=== PATIENT | female | born 1965 | race Caucasian/White ===

== ENCOUNTER → 2018-03-18 | Outpatient (CLI) | payer SELFPAY | LOC: M RAD 12:02 | DX: S92.424A Nondisplaced fracture of distal phalanx of right great toe, initial encounter for closed fracture (principal); X58.XXXA Exposure to other specified factors, initial encounter; Y92.89 Other specified places as the place of occurrence of the external cause | CPT/HCPCS: 73660 ==

== ENCOUNTER → 2019-10-11 | Outpatient (REF) | payer BC | LOC: M WUC 09:26 | PROVIDERS: ATTEND Physician Assistant | DX: J02.9 Acute pharyngitis, unspecified (principal) ==

== ENCOUNTER → 2019-12-26 | Outpatient (CLI) | payer BC | LOC: M LABSMTC 13:53 | PROVIDERS: ATTEND Family Medicine | DX: Z11.59 Encounter for screening for other viral diseases (principal); Z20.828 Contact with and (suspected) exposure to other viral communicable diseases ==

== ENCOUNTER 2020-10-06 14:26 | Emergency (ER) | payer BC ==
[~2020-10-06] VITALS: Ht 167.6 cm; Wt 77.3 kg
[2020-10-06] MEDS ORDERED: ACET1TAB37 PO (14:37)
[2020-10-06] MEDS ORDERED: IBUP200C33 PO (14:37)
--- NOTE | 2020-10-06 15:07 | REP ---
INDICATION: injury skiiing COMPARISON: None. TECHNIQUE: AP, lateral, bilateral oblique and sunrise views. FINDINGS: The osseous structures and joint spaces are intact and normal for age. There is no evidence for acute fracture or dislocation. No obvious joint effusion is appreciated. Surrounding soft tissues are unremarkable. No subcutaneous emphysema or radiodense foreign body. IMPRESSION: No acute fracture or dislocation. <Electronically signed by Bashir Gonzalez > 10/06/20 1215
[2020-10-06] MEDS ORDERED: ACET1TAB16 PO (15:26)
[2020-10-06 15:35] VITALS: BP 128/89
== END 2020-10-06 15:45 | disposition home or self-care (01) ==
LOC: M ED 14:26
DX: S86.312A Strain of muscle(s) and tendon(s) of peroneal muscle group at lower leg level, left leg, initial encounter (principal); X50.1XXA Overexertion from prolonged static or awkward postures, initial encounter; Y92.838 Other recreation area as the place of occurrence of the external cause; Y93.23 Activity, snow (alpine) (downhill) skiing, snowboarding, sledding, tobogganing and snow tubing; Y99.8 Other external cause status; F17.210 Nicotine dependence, cigarettes, uncomplicated; Z79.899 Other long term (current) drug therapy

== ENCOUNTER → 2024-03-03 | Outpatient (CLI) | payer BC ==
[~2024-03-03] MED LIST: ACET1TAB37 PO; ACET300T48 PO; IBUP200C33 PO
[2024-03-03 14:33] LABS: THYROID STIMULATING HORMONE 2.043 uIU/ML (0.55-4.78)
[2024-03-03 14:38] LABS: ALBUMIN 3.3 G/DL (3.2-5.2); ALKALINE PHOSPHATASE 86 U/L (46-116); ALT/SGPT 24 U/L (7.0-40); AST/SGOT 12 U/L (<34); BILIRUBIN,TOTAL 0.4 MG/DL (0.3-1.2); BLOOD UREA NITROGEN 16 MG/DL (9-23); CALCIUM LEVEL 8.9 MG/DL (8.5-10.1); CARBON DIOXIDE LEVEL 30 MMOL/L (20-31); CHLORIDE LEVEL 107 MMOL/L (98-107); CHOLESTEROL LEVEL 235 MG/DL (<200); CHOLESTEROL RISK RATIO 4.46 (<5); CREATININE FOR GFR 0.66 MG/DL (0.55-1.30); GLOMERULAR FILTRATION RATE > 60.0 (>51); GLUCOSE, FASTING 90 MG/DL (60-100); HDL CHOLESTEROL 52.6 MG/DL (>40); HEMATOCRIT 48.6 % (36.0-47.0); HEMOGLOBIN 16.4 g/dl (12.0-15.5); LDL CHOLESTEROL 129.2 MG/DL (<100); MEAN CORPUSCULAR HEMOGLOBIN 32.5 pg (27.0-33.0); MEAN CORPUSCULAR HGB CONC 33.7 g/dl (32.0-36.5); MEAN CORPUSCULAR VOLUME 96.2 fl (80.0-96.0); NON-HDL-C 182.4 MG/DL; PLATELET COUNT, AUTOMATED 272 10^3/uL (150-450); POTASSIUM SERUM 4.8 MMOL/L (3.5-5.1); RED BLOOD COUNT 5.05 10^6/uL (4.00-5.40); SODIUM LEVEL 141 MMOL/L (136-145); TOTAL PROTEIN 6.2 G/DL (5.7-8.2); TRIGLYCERIDES LEVEL 266 MG/DL (<150); WHITE BLOOD COUNT 7.1 10^3/uL (4.0-10.0)
[2024-03-03 14:54] LABS: CREATININE, URINE 138.6 MG/DL
[2024-03-03 15:00] LABS: HEMOGLOBIN A1c 5.1 % (4.0-6.0)
[2024-03-03 15:10] LABS: MAU/CREAT RATIO 924.9 MCG/MG (0.0-30.0)
== END ==
LOC: M PLALAB 11:50
PROVIDERS: ATTEND Family Medicine
DX: I10 Essential (primary) hypertension (principal); Z13.6 Encounter for screening for cardiovascular disorders; F17.210 Nicotine dependence, cigarettes, uncomplicated

== ENCOUNTER → 2024-05-08 | Outpatient (CLI) | payer BC | LOC: M RAD 16:30 | PROVIDERS: ATTEND Family Medicine | DX: Z12.2 Encounter for screening for malignant neoplasm of respiratory organs (principal); F17.210 Nicotine dependence, cigarettes, uncomplicated; J98.11 Atelectasis; R91.8 Other nonspecific abnormal finding of lung field; J84.10 Pulmonary fibrosis, unspecified; I70.0 Atherosclerosis of aorta ==

== ENCOUNTER → 2024-06-28 | Outpatient (CLI) | payer BC | LOC: M CARPUL 11:02 | PROVIDERS: ATTEND Family Medicine | DX: R06.09 Other forms of dyspnea (principal) ==

== ENCOUNTER → 2024-07-10 | Outpatient (CLI) | payer BC ==
[2024-07-10 18:15] LABS: APPEARANCE, URINE CLOUDY (CLEAR); BACTERIA, URINE AUTO NEGATIVE (NEGATIVE); BILIRUBIN, URINE AUTO 1+ (NEGATIVE); BLOOD, URINE BLOOD NEGATIVE (NEGATIVE); COLOR, URINE AMBER (YELLOW); GLUCOSE, URINE (UA) AUTO NEGATIVE (NEGATIVE); KETONE, URINE AUTO TRACE mg/dL (NEGATIVE); LEUKOCYTE ESTERASE, URINE AUTO 2+ (NEGATIVE); MUCUS, URINE MODERATE (NEGATIVE); NITRITE, URINE AUTO NEGATIVE (NEGATIVE); PROTEIN, URINE AUTO 3+ mg/dL (NEGATIVE); RBC, URINE AUTO 3 /HPF (0-3); SPECIFIC GRAVITY URINE AUTO 1.029 (1.002-1.035); SQUAMOUS EPITHELIAL CELL UR AU 5 /HPF (0-6); WBC, URINE AUTO 44 /HPF (0-3)
[2024-07-10 18:45] LABS: ALBUMIN 3.9 G/DL (3.2-5.2); ALKALINE PHOSPHATASE 99 U/L (46-116); ALT/SGPT 18 U/L (7.0-40); AST/SGOT 13 U/L (<34); BILIRUBIN,TOTAL 0.4 MG/DL (0.3-1.2); BLOOD UREA NITROGEN 21 MG/DL (9-23); CALCIUM LEVEL 10.4 MG/DL (8.5-10.1); CARBON DIOXIDE LEVEL 30 MMOL/L (20-31); CHLORIDE LEVEL 106 MMOL/L (98-107); CREATININE FOR GFR 0.78 MG/DL (0.55-1.30); GLOMERULAR FILTRATION RATE > 60.0 (>51); GLUCOSE, FASTING 82 MG/DL (60-100); POTASSIUM SERUM 4.1 MMOL/L (3.5-5.1); SODIUM LEVEL 138 MMOL/L (136-145); TOTAL PROTEIN 7.3 G/DL (5.7-8.2)
[2024-07-10 19:00] LABS: CREATININE, URINE 361.1 MG/DL; TOTAL PROTEIN,RANDOM URINE 162.4 MG/DL (0.0-14.0)
== END ==
LOC: M PLALAB 15:47
PROVIDERS: ATTEND Family Medicine
DX: R80.9 Proteinuria, unspecified (principal)

== ENCOUNTER → 2024-07-11 | Outpatient (CLI) | payer BC | LOC: M WHC 16:53 | PROVIDERS: ATTEND Family Medicine | DX: Z12.39 Encounter for other screening for malignant neoplasm of breast (principal); R80.9 Proteinuria, unspecified; M25.551 Pain in right hip; Z53.9 Procedure and treatment not carried out, unspecified reason ==

== ENCOUNTER → 2024-07-21 | Outpatient (CLI) | payer BC | LOC: M RAD 16:34 | PROVIDERS: ATTEND Family Medicine | DX: M25.551 Pain in right hip (principal) ==

== ENCOUNTER → 2024-07-21 | Outpatient (REF) | payer BC | LOC: M SFHCPLAZ 16:32 | PROVIDERS: ATTEND Family Medicine | DX: Z12.11 Encounter for screening for malignant neoplasm of colon (principal); R82.81 Pyuria; R80.9 Proteinuria, unspecified ==

== ENCOUNTER → 2024-08-16 | Outpatient (CLI) | payer BC | LOC: M RAD 13:34 | PROVIDERS: ATTEND Family Medicine | DX: R80.9 Proteinuria, unspecified (principal) ==

== ENCOUNTER 2024-12-05 14:37 | Emergency (ER) | payer BC ==
[~2024-12-05] VITALS: Ht 167.6 cm; Wt 74.8 kg
[2024-12-05] MEDS ORDERED: VANCOMYCIN HCL 1,000 MG, VIAL MATE ADAPTER 1 EACH in NS 250 ML IV SCH (15:20)
[2024-12-05] MEDS: NS 500 ML IV ONE (15:20)
[2024-12-05] MEDS: MORPHINE 2 MG/ML 1ML VIAL IV ONE ×2 (15:58→17:31)
[2024-12-05] MEDS: PIPERACILLIN/TAZOBACTAM SOD 3.375 GM in DEXTROSE 5% (D5W) ADV/MINI-BAG 50 ML IV ONE (15:59)
[2024-12-05 16:10] LABS: BASO # 0.1 10^3/uL (0.0-0.2); BASO % 0.4 % (0.0-1.0); EOS # 0.1 10^3/uL (0.0-0.5); EOS % 0.8 % (0.0-3.0); HEMATOCRIT 43.4 % (36.0-47.0); HEMOGLOBIN 14.5 g/dl (12.0-15.5); LYMPH # 2.4 10^3/uL (1.5-5.0); MEAN CORPUSCULAR HEMOGLOBIN 32.7 pg (27.0-33.0); MEAN CORPUSCULAR HGB CONC 33.4 g/dl (32.0-36.5); MONO # 0.9 10^3/uL (0.0-0.8); MONO % 7.7 % (2.0-8.0); NEUTROPHILS # 8.4 10^3/uL (1.5-8.5); NEUTROPHILS % 70.4 % (36.0-66.0); PLATELET COUNT, AUTOMATED 295 10^3/uL (150-450); RED BLOOD COUNT 4.43 10^6/uL (4.00-5.40); WHITE BLOOD COUNT 11.9 10^3/uL (4.0-10.0)
[2024-12-05 16:23] LABS: ERYTHROCYTE SEDIMENTATION RATE 60 mm/hr (0-30)
[2024-12-05 16:46] LABS: BLOOD UREA NITROGEN 17 MG/DL (9-23); C REACTIVE PROTEIN QUANTITATIV 24.88 MG/DL (<1.0); CALCIUM LEVEL 8.5 MG/DL (8.5-10.1); CARBON DIOXIDE LEVEL 27 MMOL/L (20-31); CHLORIDE LEVEL 107 MMOL/L (98-107); CREATININE FOR GFR 0.67 MG/DL (0.55-1.30); GLOMERULAR FILTRATION RATE > 60.0 (>51); GLUCOSE, FASTING 89 MG/DL (60-100); POTASSIUM SERUM 3.8 MMOL/L (3.5-5.1); SODIUM LEVEL 141 MMOL/L (136-145)
[2024-12-05] MEDS: VANCOMYCIN HCL 1,500 MG, VIAL MATE ADAPTER 1 EACH in NS 500 ML IV ONE (17:31)
[2024-12-05] MEDS: NS (Normal Saline) 0.9% 1,000 ML IV SCH (17:31)
[2024-12-05] MEDS: ACETAMINOPHEN 500 MG TAB PO ONE (19:25)
[2024-12-05] MEDS: MORPHINE 2 MG/ML 1ML VIAL IV PRN (19:26)
[2024-12-05 20:00] VITALS: BP 144/74
[2024-12-05 20:07] VITALS: TEMP 97.2; O2SAT 82
== END 2024-12-05 20:35 | disposition short-term general hospital (02) ==
LOC: M ED 14:37
DX: T24.332A Burn of third degree of left lower leg, initial encounter (principal); T24.232A Burn of second degree of left lower leg, initial encounter; T24.132A Burn of first degree of left lower leg, initial encounter; F17.210 Nicotine dependence, cigarettes, uncomplicated; Z79.1 Long term (current) use of non-steroidal anti-inflammatories (NSAID); T31.0 Burns involving less than 10% of body surface
CPT/HCPCS: 80048; 85025; 85652; 86140; 93041; 94760; 96361; 96365; 96366; 96375; 96376; 99285; J2543; J3370

== ENCOUNTER → 2025-01-03 | Outpatient (CLI) | payer BC | LOC: M SOG 07:52 | PROVIDERS: ATTEND Orthopaedic Surgery | DX: M54.50 Low back pain, unspecified (principal) ==

== ENCOUNTER → 2025-06-21 | Outpatient (CLI) | payer BC ==
[~2025-06-21] MED LIST changes: +ACET-1592 PO; -ACET1TAB37 PO
== END ==
LOC: M RAD 16:11
PROVIDERS: ATTEND Family Medicine
DX: J43.9 Emphysema, unspecified (principal); R91.8 Other nonspecific abnormal finding of lung field; J98.4 Other disorders of lung

== ENCOUNTER → 2025-07-31 | Outpatient (CLI) | payer BC ==
[2025-07-31 17:12] LABS: APPEARANCE, URINE CLEAR (CLEAR); BACTERIA, URINE AUTO NEGATIVE (NEGATIVE); BILIRUBIN, URINE AUTO NEGATIVE (NEGATIVE); BLOOD, URINE BLOOD NEGATIVE (NEGATIVE); GLUCOSE, URINE (UA) AUTO NEGATIVE (NEGATIVE); KETONE, URINE AUTO NEGATIVE (NEGATIVE); LEUKOCYTE ESTERASE, URINE AUTO NEGATIVE (NEGATIVE); NITRITE, URINE AUTO NEGATIVE (NEGATIVE); PROTEIN, URINE AUTO 3+ mg/dL (NEGATIVE); RBC, URINE AUTO 4 /HPF (0-3); SPECIFIC GRAVITY URINE AUTO 1.014 (1.002-1.035); SQUAMOUS EPITHELIAL CELL UR AU 1 /HPF (0-6); UROBILINOGEN, URINE AUTO 0.2 mg/dL (0.0-2.0); WBC, URINE AUTO 0 /HPF (0-3)
[2025-07-31 17:50] LABS: ESTIMATED AVERAGE GLUCOSE 97.0 MG/DL (60-110)
[2025-07-31 18:00] LABS: CALCIUM LEVEL 9.0 MG/DL (8.5-10.1); CARBON DIOXIDE LEVEL 30 MMOL/L (20-31); CHLORIDE LEVEL 105 MMOL/L (98-107); CHOLESTEROL LEVEL 287 MG/DL (<200); CHOLESTEROL RISK RATIO 3.26 (<5); CREATININE FOR GFR 0.61 MG/DL (0.55-1.30); GLOMERULAR FILTRATION RATE > 90.0 (>51); LDL CHOLESTEROL 160.4 MG/DL (<100); NON-HDL-C 199.0 MG/DL; POTASSIUM SERUM 4.0 MMOL/L (3.5-5.1); SODIUM LEVEL 139 MMOL/L (136-145); TRIGLYCERIDES LEVEL 193 MG/DL (<150)
[2025-07-31 18:38] LABS: CREATININE, URINE 86.0 MG/DL
[2025-07-31 18:49] LABS: MALB URINE SIEMENS 1668.0 MG/L; MAU/CREAT RATIO 1939.5 MCG/MG (0.0-30.0)
== END ==
LOC: M PLALAB 15:59
PROVIDERS: ATTEND Family Medicine
DX: R80.9 Proteinuria, unspecified (principal); Z12.11 Encounter for screening for malignant neoplasm of colon; I10 Essential (primary) hypertension; Z13.6 Encounter for screening for cardiovascular disorders